=== PATIENT | female | born 1955 ===

== ENCOUNTER 2018-12-25 14:43 | Observation (INO) | payer MEDICARE ==
[2018-12-25 14:54] VITALS: BMI 22.8
[2018-12-25] MEDS ORDERED: Iodixanol 320 MG/ML 100 ML BOTTLE IV ONE (15:01)
[2018-12-25 15:03] LABS: BASO % 0.4 % (0.0-2.0); EOS # 0.1 K/uL (0.0-0.7); EOS % 0.7 % (0.0-4.0); HEMOGLOBIN 13.6 g/dL (11.0-16.0); LYMPH # 2.2 K/uL (1.0-4.3); LYMPH % 29.6 % (20.0-40.0); MEAN CELL VOLUME 86.7 fL (81.0-99.0); MEAN CORPUSCULAR HGB CONC 33.4 g/dL (33.0-37.0); MEAN PLATELET VOLUME 8.4 fL (7.2-11.7); MONO # 0.5 K/uL (0.0-0.8); MONO % 6.4 % (0.0-10.0); NEUT # 4.6 K/uL (1.8-7.0); NEUT % 62.9 % (50.0-75.0); RBC 4.7 Mil/uL (3.80-5.20); WHITE BLOOD COUNT 7.3 K/uL (4.8-10.8)
[2018-12-25 15:11] LABS: PROTHROMBIN TIME 11.1 SECONDS (9.7-12.2)
[2018-12-25 15:15] LABS: ALB/GLOB RATIO 1.4 (1.0-2.1); ALBUMIN 4.4 g/dL (3.5-5.0); ALT/SGPT 23 U/L (9-52); AST/SGOT 27 U/L (14-36); BLOOD UREA NITROGEN 6 mg/dL (7-17); CALCIUM 9.2 mg/dl (8.6-10.4); GFR NON-AFRICAN AMERICAN > 60; HDL CHOLESTEROL 40 mg/dL (30-70)
--- NOTE | 2018-12-25 15:21 | CT ---
Date of service: 12/25/2018 PROCEDURE: CT HEAD WITHOUT CONTRAST. HISTORY: Code Stroke COMPARISON: Not available TECHNIQUE: Axial computed tomography images were obtained through the head/brain without intravenous contrast. Radiation dose: Total exam DLP = 962.84 mGy-cm. This CT exam was performed using one or more of the following dose reduction techniques: Automated exposure control, adjustment of the mA and/or kV according to patient size, and/or use of iterative reconstruction technique. FINDINGS: HEMORRHAGE: No intracranial hemorrhage. BRAIN: No mass effect or edema. No significant atrophy. Minimal periventricular white matter lucency consistent with microvascular white matter ischemic change. VENTRICLES: Unremarkable. No hydrocephalus. CALVARIUM: Unremarkable. PARANASAL SINUSES: Unremarkable as visualized. No significant inflammatory changes. MASTOID AIR CELLS: Unremarkable as visualized. No inflammatory changes. OTHER FINDINGS: None. IMPRESSION: No evidence of acute infarct. No intracranial mass or hemorrhage. The findings in this examination were discussed by telephone with Dr. Benson at 3:18 p.m. on 12/25/2018.
[2018-12-25 15:27] LABS: LDL CHOLESTEROL 109 mg/dL (0-129)
--- NOTE | 2018-12-25 15:51 | RAD ---
Date of service: 12/25/2018 HISTORY: Code Stroke COMPARISON: No prior. FINDINGS: LUNGS: The lungs are well inflated and clear. PLEURA: No pleural effusions or pneumothorax. CARDIOVASCULAR: The heart is normal in size. No aortic atherosclerotic calcifications present. OSSEOUS STRUCTURES: Status post posterior spinal fixation in the lower thoracic spine. VISUALIZED UPPER ABDOMEN: Normal. OTHER FINDINGS: None. IMPRESSION: No active pulmonary disease.
--- NOTE | 2018-12-25 16:07 | C.PDOC ---
History Of Present Illness 63 y/o female presents to the ED complaining of not feeling well for the past 3 days. She describes having headache, confusion, and "generalized heaviness" to her body. Patient also complains of new left-sided facial numbness since this morning, unclear exactly what time, extending downward as "heaviness" into her left arm and left leg. Otherwise patient denies any fever, chills, neck pain, nausea, vomiting, visual changes, dizziness, palpitations, chest pain, or SOB. Patient is able to ambulate normally. Time Seen by Provider: 12/25/18 14:45 Chief Complaint (Nursing): Headache History Per: Patient History/Exam Limitations: no limitations Onset/Duration Of Symptoms: Days (3) Current Symptoms Are (Timing): Still Present Past Medical History Reviewed: Historical Data, Nursing Documentation, Vital Signs Vital Signs: Last Vital Signs Temp 97.6 F 12/25/18 14:45 Pulse 80 12/25/18 14:45 Resp 20 12/25/18 14:45 BP 154/84 H 12/25/18 14:45 Pulse Ox 100 12/25/18 14:45 - Medical History PMH: Asthma, Gastritis, HTN (denies as of 12/25/18), Hypercholesterolemia Surgical History: Back Surgery - [facility] INJECT/INFUSE NEC (04/04/14) Family History: States: Unknown Family Hx - Social History Hx Tobacco Use: Yes (Former smoker) Hx Alcohol Use: No Hx Substance Use: No Review Of Systems Except As Marked, All Systems Reviewed And Found Negative. Constitutional: Negative for: Fever, Chills Eyes: Negative for: Vision Change Cardiovascular: Negative for: Chest Pain Respiratory: Negative for: Shortness of Breath Gastrointestinal: Negative for: Nausea, Vomiting Musculoskeletal: Negative for: Neck Pain Neurological: Positive for: Numbness (left facial numbness), Confusion, Headache, Other ("heaviness" to left arm and left leg). Negative for: Weakness, Incoordination, Change in Speech, Dizziness Physical Exam - Physical Exam Appears: Non-toxic, No Acute Distress Skin: Warm, Dry, No Diaphoretic Head: Atraumatic, Normacephalic, Other (No facial droop) Eye(s): bilateral: Normal Inspection, PERRL, EOMI Nose: Normal Oral Mucosa: Moist Neck: Normal ROM, Supple Chest: Symmetrical, No Deformity Cardiovascular: Rhythm Regular, No Murmur Respiratory: Normal Breath Sounds, No Accessory Muscle Use, No Rhonchi, No Wheezing Gastrointestinal/Abdominal: Soft, No Tenderness, No Distention Extremity: Bilateral: Atraumatic, Normal Color And Temperature Pulses: Left Dorsalis Pedis: Normal, Right Dorsalis Pedis: Normal Neurological/Psych: Oriented x3, Normal Speech, Normal Cognition, No Normal Sensation (+ subjective sensation of numbness to left face), Other (Patient able to tandem walk, good [id number], no evidence of confusion) Extremity: Upper: No Drift, Lower: No Drift ED Course And Treatment - Laboratory Results Result Diagrams: 12/25/18 14:59 12/25/18 14:59 Lab Results: PT 11.1 SECONDS (9.7-12.2) 12/25/18 14:59 INR 1.0 12/25/18 14:59 APTT 35 SECONDS (21-34) H 12/25/18 14:59 Troponin I < 0.0120 ng/mL (0.00-0.120) 12/25/18 14:59 Total Bilirubin 0.6 mg/dL (0.2-1.3) 12/25/18 14:59 AST 27 U/L (14-36) 12/25/18 14:59 ALT 23 U/L (9-52) 12/25/18 14:59 Alkaline Phosphatase 65 U/L (38-126) 12/25/18 14:59 Total Protein 7.6 g/dL (6.3-8.3) 12/25/18 14:59 Albumin 4.4 g/dL (3.5-5.0) 12/25/18 14:59 Globulin 3.2 gm/dL (2.2-3.9) 12/25/18 14:59 Albumin/Globulin Ratio 1.4 (1.0-2.1) 12/25/18 14:59 ECG Rhythm: Sinus Rhythm ECG Interpretation: Normal Interpretation Of ECG: No ST elevations or depressions Rate From EC O2 Sat by Pulse Oximetry: 100 (RA) Pulse Ox Interpretation: Normal - Other Rad CXR X-Ray: Read By Radiologist Interpretation: Accession No. : [id number]. Patient Name / ID : XI Hedrick / [id number]. Exam Date : 12/25/2018 15:30:38 ( Approved ). Study Comment : Sex / Age : F / 63Y. Creator : Zainab Butler MD. Dictator : Zainab Butler MD. Order Puller : Ged Teacher : Zainab Butler MD. Approver2 : Report Date : 12/25/2018 15:47:45. My Comment : . Date of service: 12/25/2018. HISTORY: Code Stroke. COMPARISON: No prior. FINDINGS: LUNGS: The lungs are well inflated and clear. PLEURA: No pleural effusions or pneumothorax. CARDIOVASCULAR: The heart is normal in size. No aortic atherosclerotic calcifications present. OSSEOUS STRUCTURES: Status post posterior spinal fixation in the lower thoracic spine. VISUALIZED UPPER ABDOMEN: Normal. OTHER FINDINGS: None. IMPRESSION: No active pulmonary disease. - CT Scan/US Head CT Other Rad Studies (CT/US): Read By Radiologist, Radiology Report Reviewed CT/US Interpretation: Accession No. : [id number]. Patient Name / ID : XI Hedrick / [id number]. Exam Date : 12/25/2018 15:02:40 ( Approved ). Study Comment : Sex / Age : F / 63Y. Creator : Pastora Hua. Dictator : Luiz Chao MD. Order Puller : Ged Teacher : Luiz Chao MD. Approver2 : Report Date : 12/25/2018 15:05:03. My Comment : . Date of service: 12/25/2018. PROCEDURE: CT HEAD WITHOUT CONTRAST. HISTORY: Code Stroke. COMPARISON: Not available. TECHNIQUE: Axial computed tomography images were obtained through the head/brain without intravenous contrast. Radiation dose: Total exam DLP = 962.84 mGy-cm. This CT exam was performed using one or more of the following dose reduction techniques: Automated exposure control, adjustment of the mA and/or kV according to patient size, and/or use of iterative reconstruction technique. FINDINGS: HEMORRHAGE: No intracranial hemorrhage. BRAIN: No mass effect or edema. No significant atrophy. Minimal periventricular white matter lucency consistent with microvascular white matter ischemic change. VENTRICLES: Unremarkable. No hydrocephalus. CALVARIUM: Unremarkable. PARANASAL SINUSES: Unremarkable as visualized. No significant inflammatory changes. MASTOID AIR CELLS: Unremarkable as visualized. No inflammatory changes. OTHER FINDINGS: None. IMPRESSION: No evidence of acute infarct. No intracranial mass or hemo rrhage. The findings in this examination were discussed by telephone with Dr. Benson at 3:18 p.m. on 12/25/2018. NIHSS Stroke Scale - Date/Time Evaluation Performed Date Performed: 12/25/18 Time Performed: 14:50 When Was NIHSS Performed: Baseline - How Severe is the Stoke Level of Consciousness: 0=Alert LOC to Questions: 0=Both comments correct LOC to commands: 0=Obeys both correctly Best Gaze: 0=Normal Visual: 0=No visual loss Facial: 0=Normal Motor Arm - Left: 0=No drift Motor Arm - Right: 0=No drift Motor Leg - Left: 0=No drift Motor Leg - Right: 0=No drift Limb Ataxia: 0=Absent Sensory: 1=Mild to moderate loss Best Language: 0=No aphasia Dysarthia: 0=Normal articulation Extinction & Inattention (Neglect): 0=Normal, no object Score: 1 rTPA Inclusion/Exclusion - Refusal of Treatment Patient Refused Treatment: No - Inclusion Criteria for Altepase Patient is 18 years or Older: Yes The Clinical Diagnosis of Ischemic Stroke That is Causing a Potentially Disabling Neurological Deficit: Yes Time of Onset is Well Established to be Less Than 270 Minute Before Treatment Would Begin: No Risk/Benefit Discussed With Patient/Family Member Present: No - Exclusion Criteria for Altepase Uncontrolled Hypertension at Time of Treatment (Systolic BP above 185 or Diastolic BP above 110 mmHg): No Medical Decision Making Medical Decision Making: Patient seen and immediately evaluated in the ED. Code Stroke initiated. Initial Plan: - CT Head - CTA Head/Neck - Labs - EKG - Chest x-ray CT read as unremarkable. CTA delayed for reasons we could not help. 16:[address] Wilkins, who recommends giving aspirin, plavix, and lipitor. Discussed with Dr. Velazco, who agrees with the plan. Will admit. Disposition Discussed With Dr.: Dorian Wilkins Doctor Will See Patient In The: Hospital Counseled Patient/Family Regarding: Studies Performed, Diagnosis - Disposition Disposition: HOME/ ROUTINE Disposition Time: 16:30 Condition: GUARDED Forms: [facility] (Estonian) - POA Present On Arrival: None Core Measure Indicators: Code Stroke - Clinical Impression Clinical Impression: Headache, TIA (transient ischemic attack) - Scribe Statement The provider has reviewed the documentation as recorded by the Jefibevette Nichols Provider Attestation: All medical record entries made by the Jefibe were at my direction and personally dictated by me. I have reviewed the chart and agree that the record accurately reflects my personal performance of the history, physical exam, medical decision making, and the department course for this patient. I have also personally directed, reviewed, and agree with the discharge instructions and disposition. Decision To Admit - Pt Status Changed To: Hospital Disposition Of: Observation - . Bed Request Type: Telemetry Admitting Physician: Tito Velazco Patient Diagnosis: Headache, TIA (transient ischemic attack)
--- NOTE | 2018-12-25 17:03 | CT ---
Date of service: 12/25/2018 PROCEDURE: CTA HEAD AND NECK WITH CONTRAST HISTORY: code stroke COMPARISON: None available. TECHNIQUE: Initial noncontrast head CT was performed. Subsequently, CT angiogram of the head and neck were performed after the intravenous administration of 80 mL of Omnipaque 350. Contiguous 1.5mm thick images were obtained in the axial plane of the neck. 2-D coronal and sagittal MPR images were obtained. Imaging postprocessing was performed with 3-D images also obtained. A delayed contrast head CT was also obtained. This CT exam was performed using one or more of the following dose reduction techniques: Automated exposure control, adjustment of the mA and/or kV according to patient size, and/or use of iterative reconstruction technique. Contrast dose: 100 mL Visipaque 320 Radiation dose: Total exam DLP = 549.65 mGy-cm. FINDINGS: HEAD: Right: The intracranial internal carotid artery, and anterior and middle cerebral arteries are widely patent. Left: The intracranial internal carotid artery, and anterior and middle cerebral arteries are widely patent. Posterior circulation: The visualized intracranial vertebral arteries, basilar artery and posterior cerebral arteries are widely patent. There is no endoluminal filling defect to suggest thrombus. There is no intracranial saccular aneurysm. NECK: There is a three vessel aortic arch. There is no stenosis at the origins of the great vessels at the level of the aortic arch. No atherosclerotic calcification or mural plaque present. Right Carotid: On the right, the common carotid, internal carotid and external carotid arteries are widely patent. There is no hemodynamically significant stenosis in the internal carotid artery by NASCET criteria. Left Carotid: On the left, the common carotid, internal carotid and external carotid arteries are widely patent. There is no hemodynamically significant stenosis in the internal carotid artery by NASCET criteria. The vertebral arteries are widely patent. The left vertebral artery is hypoplastic, an anatomic variant. The visualized soft tissues of the neck are normal. The visualized brain and cervical spine are within normal limits. The lung apices are clear. IMPRESSION: 1. No evidence of endoluminal thrombus,occlusion or definite significant stenosis in the intracranial arteries. 2. No evidence of hemodynamically significant stenosis in the internal carotid arteries. 3. Patent bilateral vertebral arteries.
--- NOTE | 2018-12-25 18:21 | MRI ---
Date of service: 12/25/2018 PROCEDURE: MRI BRAIN WITHOUT CONTRAST HISTORY: r/o stroke COMPARISON: CT head without contrast performed earlier the same day. TECHNIQUE: Multiplanar, multisequence MR images of the brain were obtained without intravenous contrast enhancement. FINDINGS: HEMORRHAGE: None DWI: No evidence of an acute or early subacute infarction. BRAIN PARENCHYMA: There are mild chronic microangiopathic changes. There is no mass, mass effect or abnormal extra-axial fluid collection. There is no territorial infarction. The midline sagittal structures are normal. VENTRICLES: There is mild age-related global parenchymal volume loss and proportionate enlargement of the ventricles and cortical sulci. CRANIUM: There is normal bone marrow signal pattern. ORBITS: Grossly unremarkable. PARANASAL SINUSES/MASTOIDS: There is moderate polypoid mucosal thickening in the maxillary sinuses. The remaining included paranasal sinuses are clear. VASCULAR SYSTEM: There are normal signal voids in the larger intracranial arteries. OTHER FINDINGS: None. IMPRESSION: No acute intracranial abnormality. Mild age-related global parenchymal volume loss.
[2018-12-25 18:44] VITALS: RESP 20
--- NOTE | 2018-12-25 18:44 | MRI ---
Date of service: 12/25/2018 PROCEDURE: MR Angiography of the neck without contrast HISTORY: stroke COMPARISON: None available. TECHNIQUE: 3D [id number] angiography of the neck was performed. Rotating maximum intensity projection images of the cervical carotid and vertebral arteries were generated. The origins of the common carotid arteries were not visualized, which is a limitation inherent to the non-contrast time of flight technique. FINDINGS: RIGHT CAROTID ARTERIES: Common Carotid Artery: Normal. Carotid Bifurcation: Normal. Internal Carotid Artery:Normal. External Carotid Artery (proximal branches): Normal. LEFT CAROTID ARTERIES: Common Carotid Artery: Normal. Carotid Bifurcation: Normal. Internal Carotid Artery:Normal. External Carotid Artery (proximal branches): Normal. VERTEBRAL ARTERIES: Right Vertebral Artery: Normal. Left Vertebral Artery: Normal. Hypoplastic, an anatomic variant. OTHER FINDINGS: None. IMPRESSION: Normal MR Angiography of the neck.
--- NOTE | 2018-12-25 18:46 | MRI ---
Date of service: 12/25/2018 PROCEDURE: Magnetic Resonance Angiography Brain HISTORY: r/o stroke COMPARISON: None available. TECHNIQUE: 3D time of flight MR angiography of the intracranial arteries was performed. Rotating maximum intensity projection images were generated. FINDINGS: INTERNAL CAROTID ARTERIES: Normal flow related signal. The skull base, petrous, cavernous and supraclinoid segments are bilaterally widely patient. ANTERIOR CEREBRAL ARTERIES: Normal flow related signal. A1 and A2 segments are widely patent. Smaller distal branches unremarkable, as visualized. MIDDLE CEREBRAL ARTERIES: Normal flow related signal. M1 and M2 segments are widely patent. Perisylvian branches grossly symmetric. POSTERIOR CIRCULATION: Basilar Artery: Normal flow related signal. Normal in caliber and widely patent. Distal Vertebral Arteries: Normal flow related signal. The left vertebral artery is hypoplastic, an anatomic variant. Posterior Cerebral Arteries: Normal flow related signal. Widely patent. Posterior Inferior Cerebellar Arteries: Normal flow related signal. Widely patent. ANEURYSM/ VASCULAR MALFORMATIONS: None. OTHER FINDINGS: None. IMPRESSION: Normal noncontrast MR angiography of the brain.
[2018-12-25] MEDS ORDERED: Fluticasone Nasal 50 mcg/Spray NAS PRN (19:39)
[2018-12-25] MEDS: Enoxaparin 40 mg Syringe SC SCH (22:13)
[2018-12-25 22:58] LABS: CK-MB 0.68 ng/mL (0.0-3.38)
[2018-12-26 07:08] LABS: CK-MB 0.52 ng/mL (0.0-3.38)
--- NOTE | 2018-12-26 07:18 | CP.PCM.CON ---
<Vlaentino Gant - Last Filed: 12/26/18 15:14> Meds Allergies/Adverse Reactions: Allergies Allergy/AdvReac Type Severity Reaction Status Date / Time No Known Allergies Allergy Unverified 12/25/18 14:54 - Medications Medications: Current Medications Ascorbic Acid (Vitamin C 500 Mg Tab) 500 mg PO BID [facility] Last Admin: 12/26/18 09:46 Dose: Not Given Aspirin (Ecotrin) 81 mg PO DAILY [facility] Last Admin: 12/26/18 09:44 Dose: 81 mg Calcium/Vitamin D (Oyster Shell Calcium/Vitamin D 500 Mg-200 Iu) 2 tab PO DAILY [facility] Last Admin: 12/26/18 09:46 Dose: Not Given Enoxaparin Sodium (Lovenox) 40 mg SC DAILY [facility] Last Admin: 12/26/18 09:44 Dose: 40 mg Ergocalciferol (Drisdol 50,000 Intl Units Cap) 1 cap PO QWK [facility] Fluticasone Propionate (Flonase) 1 spr PATRICIA DAILY PRN PRN Reason: Allergy symptoms Pantoprazole Sodium (Protonix Ec Tab) 20 mg PO DAILY [facility] Last Admin: 12/26/18 09:43 Dose: 20 mg Zolpidem Tartrate (Ambien) 5 mg PO HS [facility] Last Admin: 12/25/18 22:13 Dose: 5 mg Results - Vital Signs Recent Vital Signs: Last Vital Signs Temp 98.1 F 12/26/18 08:23 Pulse 87 12/26/18 10:00 Resp 20 12/26/18 08:23 BP 117/71 12/26/18 08:23 Pulse Ox 98 12/26/18 08:23 - Labs Result Diagrams: 12/25/18 14:59 12/25/18 14:59 Labs: Laboratory Results - last 24 hr 12/25/18 12/25/18 12/25/18 14:59 14:59 15:58 Sodium 139 Potassium 3.7 Chloride 105 Carbon Dioxide 27 Anion Gap 10 BUN 6 L Creatinine 0.6 L Est GFR ( Amer) > 60 Est GFR (Non-Af Amer) > 60 POC Glucose (mg/dL) Random Glucose 93 Hemoglobin A1c 5.8 Calcium 9.2 Total Bilirubin 0.6 AST 27 ALT 23 Alkaline Phosphatase 65 Total Creatine Kinase CK-MB (Mass) Troponin I < 0.0120 Total Protein 7.6 Albumin 4.4 Globulin 3.2 Albumin/Globulin Ratio 1.4 Triglycerides 155 H Cholesterol 173 LDL Cholesterol Direct 109 HDL Cholesterol 40 Blood Type O POSITIVE Antibody Screen Negative 12/25/18 12/26/18 12/26/18 22:27 00:06 06:14 Sodium Potassium Chloride Carbon Dioxide Anion Gap BUN Creatinine Est GFR ( Amer) Est GFR (Non-Af Amer) POC Glucose (mg/dL) 78 90 Random Glucose Hemoglobin A1c Calcium Total Bilirubin AST ALT Alkaline Phosphatase Total Creatine Kinase 49 CK-MB (Mass) 0.68 Troponin I < 0.0120 Total Protein Albumin Globulin Albumin/Globulin Ratio Triglycerides Cholesterol LDL Cholesterol Direct HDL Cholesterol Blood Type Antibody Screen 12/26/18 12/26/18 06:40 11:15 Sodium Potassium Chloride Carbon Dioxide Anion Gap BUN Creatinine Est GFR ( Amer) Est GFR (Non-Af Amer) POC Glucose (mg/dL) 115 H Random Glucose Hemoglobin A1c Calcium Total Bilirubin AST ALT Alkaline Phosphatase Total Creatine Kinase 43 CK-MB (Mass) 0.52 Troponin I < 0.0120 Total Protein Albumin Globulin Albumin/Globulin Ratio Triglycerides Cholesterol LDL Cholesterol Direct HDL Cholesterol Blood Type Antibody Screen Attending/Attestation - Attestation I have personally seen and examined this patient.: Yes I have fully participated in the care of the patient.: Yes I have reviewed all pertinent clinical information: Yes Notes (Text): 12/26/18 15:14 63-year-old female consulted by Dr. Velazco for evaluation of symptoms of atypical chest pain patient was sick about 2 weeks ago with flulike symptoms was having some generalized malaise G6 days ago started feeling not herself described that she was somewhat delirious was in the kitchen cooking a tube in the next he did not remember any of that subsequently was having some vague dizziness lethargy also had some atypical chest pain described as radiation around the arm and the neck area nonspecific in nature only positive family history is significant for premature CAD in both her parents otherwise no other cardiovascular risk factors. Did have a history of hemangioma of the back for which she had surgical correction with pins and needles back at [facility] This patient underwent exercise treadmill stress test achieved good exercise tolerance with no echocardiographic changes suggestive of ischemia she achieved 100% of her maximal predicted heart rate with a rate pressure product of 20 7K achieved 9.6 metabolic equivalents on the Denny exercise protocol. Patient can be discharged home and f/u as outpt <Adam Riggs Jesús - Last Filed: 12/26/18 17:02> History of Present Illness - History of Present Illness History of Present Illness: dAam Riggs PGY1, Cardio consult note for Dr Gant Pt is a 63yo female former smoker with a PMH of "back surgery due to an angioma, HLD who presents to the emergency department complaining of generalized weakness/ pain. Pt states she has felt sick for the past 2 weeks and has had 1 week of confusion. Pt states she has experienced head pain which migrated to her chest, arm and jaw. She has had a cough and has felt weak for the past 2 weeks. She states she had high blood pressure in the 160's/90's while at home, she states her "blood pressure has been acting up". A 12 point ROS was obtained and added to the HPI where appropriate. Past Patient History - Past Medical History & Family History Past Medical History?: Yes - Past Social History Smoking Status: Former Smoker - CARDIAC Hx Hypercholesterolemia: Yes Hx Hypertension: Yes (denies as of 12/25/18) - PULMONARY Hx Asthma: Yes - MUSCULOSKELETAL/RHEUMATOLOGICAL Hx Falls: Yes - GASTROINTESTINAL Hx Gastritis: Yes - PSYCHIATRIC Hx Substance Use: No - SURGICAL HISTORY Hx Hysterectomy: Yes Other/Comment: BACK SX. - ANESTHESIA Hx Anesthesia: Yes Hx Anesthesia Reactions: No Meds - Medications Medications: Current Medications Ascorbic Acid (Vitamin C 500 Mg Tab) 500 mg PO BID [facility] Aspirin (Ecotrin) 81 mg PO DAILY [facility] Calcium/Vitamin D (Oyster Shell Calcium/Vitamin D 500 Mg-200 Iu) 2 tab PO DAILY [facility] Enoxaparin Sodium (Lovenox) 40 mg SC DAILY [facility] Last Admin: 12/25/18 22:13 Dose: 40 mg Ergocalciferol (Drisdol 50,000 Intl Units Cap) 1 cap PO QWK [facility] Fluticasone Propionate (Flonase) 1 spr PATRICIA DAILY PRN PRN Reason: Allergy symptoms Influenza Virus Vaccine (Flucelvax Quad [id number] Syr) 60 mcg IM .ONCE ONE Stop: 12/26/18 10:01 Pantoprazole Sodium (Protonix Ec Tab) 20 mg PO DAILY [facility] Pneumococcal Polyvalent Vaccine (Pneumovax 23 Vaccine) 0.5 ml IM .ONCE ONE Stop: 12/26/18 10:01 Zolpidem Tartrate (Ambien) 5 mg PO HS [facility] Last Admin: 12/25/18 22:13 Dose: 5 mg Physical Exam - Constitutional Appears: No Acute Distress - Head Exam Head Exam: ATRAUMATIC, NORMOCEPHALIC - Eye Exam Eye Exam: EOMI - ENT Exam ENT Exam: Mucous Membranes Moist - Neck Exam Neck exam: Positive for: Full Rom - Respiratory Exam Respiratory Exam: Clear to Auscultation Bilateral, NORMAL BREATHING PATTERN. absent: Accessory Muscle Use, Respiratory Distress - Cardiovascular Exam Cardiovascular Exam: RRR, +S1, +S2. absent: Diastolic murmur, Systolic Murmur - GI/Abdominal Exam GI & Abdominal Exam: Normal Bowel Sounds, Soft - Extremities Exam Extremities exam: Positive for: full ROM, pedal pulses present. Negative for: calf tenderness, pedal edema - Neurological Exam Neurological exam: Alert, Oriented x3 - Psychiatric Exam Psychiatric exam: Normal Affect, Normal Mood - Skin Skin Exam: Dry, Normal Color, Warm Results - Vital Signs Recent Vital Signs: Last Vital Signs Temp 98 F 12/26/18 04:00 Pulse 67 12/26/18 04:16 Resp 20 12/26/18 04:00 BP 112/71 12/26/18 04:00 Pulse Ox 97 12/26/18 04:00 - Labs Result Diagrams: 12/25/18 14:59 12/25/18 14:59 Labs: Laboratory Results - last 24 hr 12/25/18 12/25/18 12/25/18 14:52 14:59 14:59 WBC 7.3 RBC 4.70 Hgb 13.6 Hct 40.7 MCV 86.7 MCH 29.0 MCHC 33.4 RDW 14.0 Plt Count 311 MPV 8.4 Neut % (Auto) 62.9 Lymph % (Auto) 29.6 [place] % (Auto) 6.4 Eos % (Auto) 0.7 Baso % (Auto) 0.4 Neut # (Auto) 4.6 Lymph # (Auto) 2.2 [place] # (Auto) 0.5 Eos # (Auto) 0.1 Baso # (Auto) 0.0 PT 11.1 INR 1.0 APTT 35 H Sodium Potassium Chloride Carbon Dioxide Anion Gap BUN Creatinine Est GFR ( Amer) Est GFR (Non-Af Amer) POC Glucose (mg/dL) 85 Random Glucose Hemoglobin A1c Calcium Total Bilirubin AST ALT Alkaline Phosphatase Total Creatine Kinase CK-MB (Mass) Troponin I Total Protein Albumin Globulin Albumin/Globulin Ratio Triglycerides Cholesterol LDL Cholesterol Direct HDL Cholesterol Blood Type Antibody Screen 12/25/18 12/25/18 12/25/18 14:59 14:59 15:58 WBC RBC Hgb Hct MCV MCH MCHC RDW Plt Count MPV Neut % (Auto) Lymph % (Auto) [place] % (Auto) Eos % (Auto) Baso % (Auto) Neut # (Auto) Lymph # (Auto) [place] # (Auto) Eos # (Auto) Baso # (Auto) PT INR APTT Sodium 139 Potassium 3.7 Chloride 105 Carbon Dioxide 27 Anion Gap 10 BUN 6 L Creatinine 0.6 L Est GFR ( Amer) > 60 Est GFR (Non-Af Amer) > 60 POC Glucose (mg/dL) Random Glucose 93 Hemoglobin A1c 5.8 Calcium 9.2 Total Bilirubin 0.6 AST 27 ALT 23 Alkaline Phosphatase 65 Total Creatine Kinase CK-MB (Mass) Troponin I < 0.0120 Total Protein 7.6 Albumin 4.4 Globulin 3.2 Albumin/Globulin Ratio 1.4 Triglycerides 155 H Cholesterol 173 LDL Cholesterol Direct 109 HDL Cholesterol 40 Blood Type O POSITIVE Antibody Screen Negative 12/25/18 12/26/18 12/26/18 22:27 06:14 06:40 WBC RBC Hgb Hct MCV MCH MCHC RDW Plt Count MPV Neut % (Auto) Lymph % (Auto) [place] % (Auto) Eos % (Auto) Baso % (Auto) Neut # (Auto) Lymph # (Auto) [place] # (Auto) Eos # (Auto) Baso # (Auto) PT INR APTT Sodium Potassium Chloride Carbon Dioxide Anion Gap BUN Creatinine Est GFR ( Amer) Est GFR (Non-Af Amer) POC Glucose (mg/dL) 90 Random Glucose Hemoglobin A1c Calcium Total Bilirubin AST ALT Alkaline Phosphatase Total Creatine Kinase 49 43 CK-MB (Mass) 0.68 0.52 Troponin I < 0.0120 < 0.0120 Total Protein Albumin Globulin Albumin/Globulin Ratio Triglycerides Cholesterol LDL Cholesterol Direct HDL Cholesterol Blood Type Antibody Screen Assessment & Plan - Assessment and Plan (Free Text) Assessment: Angina, rule out ACS HLD code stroke Plan: Angina, rule out ACS HLD code stroke Trop negative x3 HA1C 5.[address] or T wave abnormalities Stress test 12/25/18: achieved 9.6 metabolic equivalents on the Denny exercise protocol. Pt can be discahrged home. follow up as an out pt Medications ASA Pt seen, examined, assessment and plan discussed with Dr Stalin Riggs PGY1 - Date & Time Date: 12/26/18 Time: 07:00
[2018-12-26 08:24] VITALS: O2SAT 98
[2018-12-26] MEDS: Calcium-Vit D 500 mg-200 Units Tab UD PO SCH ×2 (09:43→09:46)
[2018-12-26] MEDS: Enoxaparin 40 mg Syringe SC SCH (09:44)
[2018-12-26] MEDS ORDERED: Pantoprazole 20 mg EC Tab PO SCH (10:00)
[2018-12-26] MEDS ORDERED: Influenza Vaccine 60 mcg/0.5 mL SYR (4YR UP) IM ONE (10:00)
[2018-12-26] MEDS ORDERED: Pneumococcal 23-Valent Vaccine IM ONE (10:00)
--- NOTE | 2018-12-26 11:50 | CARD ---
APPROVED REPORT Date of service: 12/25/2018 EKG Measurement Heart [id number] <Conclusion> Normal sinus rhythm Normal ECG
--- NOTE | 2018-12-26 13:26 | CP.PCM.HP ---
History of Present Illness - History of Present Illness History of Present Illness: 63 y/o female presents to the ED complaining of not feeling well for the past 3 days. She describes having headache, confusion, and "generalized heaviness" to her body. Patient also complains of new left-sided facial numbness since this morning, unclear exactly what time, extending downward as "heaviness" into her left arm and left leg. Otherwise patient denies any fever, chills, neck pain, nausea, vomiting, visual changes, dizziness, palpitations, chest pain, or SOB. Patient is able to ambulate normally. She c/o same precordial CP not specific and not on exertion. A w/u for CVA was negative the cardiac w/u still in progress. Present on Admission - Present on Admission Any Indicators Present on Admission: No Review of Systems - Constitutional Constitutional: As Per HPI - EENT Eyes: As Per HPI - Cardiovascular Cardiovascular: Chest Pain - Musculoskeletal Musculoskeletal: Arthralgias - Neurological Neurological: Numbness, Headaches - Psychiatric Psychiatric: Anxiety - Endocrine Endocrine: As Per HPI Past Patient History - Past Medical History & Family History Past Medical History?: Yes - Past Social History Smoking Status: Former Smoker - CARDIAC Hx Hypercholesterolemia: Yes Hx Hypertension: Yes (denies as of 12/25/18) - PULMONARY Hx Asthma: Yes - MUSCULOSKELETAL/RHEUMATOLOGICAL Hx Falls: Yes - GASTROINTESTINAL Hx Gastritis: Yes - PSYCHIATRIC Hx Substance Use: No - SURGICAL HISTORY Hx Hysterectomy: Yes Other/Comment: BACK SX. - ANESTHESIA Hx Anesthesia: Yes Hx Anesthesia Reactions: No Meds Allergies/Adverse Reactions: Allergies Allergy/AdvReac Type Severity Reaction Status Date / Time No Known Allergies Allergy Unverified 12/25/18 14:54 Physical Exam - Constitutional Appears: Non-toxic - Head Exam Head Exam: ATRAUMATIC, NORMAL INSPECTION, NORMOCEPHALIC - Eye Exam Eye Exam: Normal appearance - ENT Exam ENT Exam: Mucous Membranes Moist - Respiratory Exam Respiratory Exam: Clear to Auscultation Bilateral - Cardiovascular Exam Cardiovascular Exam: REGULAR RHYTHM, +S1, +S2 - GI/Abdominal Exam GI & Abdominal Exam: Normal Bowel Sounds - Extremities Exam Extremities exam: Positive for: normal inspection - Neurological Exam Neurological exam: Alert, CN II-XII Intact, Normal Gait, Oriented x3, Reflexes Normal - Psychiatric Exam Psychiatric exam: Normal Affect - Skin Skin Exam: Normal Color Results - Vital Signs Recent Vital Signs: Last Vital Signs Temp 98.1 F 12/26/18 08:23 Pulse 83 12/26/18 08:23 Resp 20 12/26/18 08:23 BP 117/71 12/26/18 08:23 Pulse Ox 98 12/26/18 08:23 - Labs Result Diagrams: 12/25/18 14:59 12/25/18 14:59 Labs: Laboratory Results - last 24 hr 12/25/18 12/25/18 12/25/18 14:52 14:59 14:59 WBC 7.3 RBC 4.70 Hgb 13.6 Hct 40.7 MCV 86.7 MCH 29.0 MCHC 33.4 RDW 14.0 Plt Count 311 MPV 8.4 Neut % (Auto) 62.9 Lymph % (Auto) 29.6 [place] % (Auto) 6.4 Eos % (Auto) 0.7 Baso % (Auto) 0.4 Neut # (Auto) 4.6 Lymph # (Auto) 2.2 [place] # (Auto) 0.5 Eos # (Auto) 0.1 Baso # (Auto) 0.0 PT 11.1 INR 1.0 APTT 35 H Sodium Potassium Chloride Carbon Dioxide Anion Gap BUN Creatinine Est GFR ( Amer) Est GFR (Non-Af Amer) POC Glucose (mg/dL) 85 Random Glucose Hemoglobin A1c Calcium Total Bilirubin AST ALT Alkaline Phosphatase Total Creatine Kinase CK-MB (Mass) Troponin I Total Protein Albumin Globulin Albumin/Globulin Ratio Triglycerides Cholesterol LDL Cholesterol Direct HDL Cholesterol Blood Type Antibody Screen 12/25/18 12/25/18 12/25/18 14:59 14:59 15:58 WBC RBC Hgb Hct MCV MCH MCHC RDW Plt Count MPV Neut % (Auto) Lymph % (Auto) [place] % (Auto) Eos % (Auto) Baso % (Auto) Neut # (Auto) Lymph # (Auto) [place] # (Auto) Eos # (Auto) Baso # (Auto) PT INR APTT Sodium 139 Potassium 3.7 Chloride 105 Carbon Dioxide 27 Anion Gap 10 BUN 6 L Creatinine 0.6 L Est GFR ( Amer) > 60 Est GFR (Non-Af Amer) > 60 POC Glucose (mg/dL) Random Glucose 93 Hemoglobin A1c 5.8 Calcium 9.2 Total Bilirubin 0.6 AST 27 ALT 23 Alkaline Phosphatase 65 Total Creatine Kinase CK-MB (Mass) Troponin I < 0.0120 Total Protein 7.6 Albumin 4.4 Globulin 3.2 Albumin/Globulin Ratio 1.4 Triglycerides 155 H Cholesterol 173 LDL Cholesterol Direct 109 HDL Cholesterol 40 Blood Type O POSITIVE Antibody Screen Negative 12/25/18 12/26/18 12/26/18 22:27 00:06 06:14 WBC RBC Hgb Hct MCV MCH MCHC RDW Plt Count MPV Neut % (Auto) Lymph % (Auto) [place] % (Auto) Eos % (Auto) Baso % (Auto) Neut # (Auto) Lymph # (Auto) [place] # (Auto) Eos # (Auto) Baso # (Auto) PT INR APTT Sodium Potassium Chloride Carbon Dioxide Anion Gap BUN Creatinine Est GFR ( Amer) Est GFR (Non-Af Amer) POC Glucose (mg/dL) 78 90 Random Glucose Hemoglobin A1c Calcium Total Bilirubin AST ALT Alkaline Phosphatase Total Creatine Kinase 49 CK-MB (Mass) 0.68 Troponin I < 0.0120 Total Protein Albumin Globulin Albumin/Globulin Ratio Triglycerides Cholesterol LDL Cholesterol Direct HDL Cholesterol Blood Type Antibody Screen 12/26/18 12/26/18 06:40 11:15 WBC RBC Hgb Hct MCV MCH MCHC RDW Plt Count MPV Neut % (Auto) Lymph % (Auto) [place] % (Auto) Eos % (Auto) Baso % (Auto) Neut # (Auto) Lymph # (Auto) [place] # (Auto) Eos # (Auto) Baso # (Auto) PT INR APTT Sodium Potassium Chloride Carbon Dioxide Anion Gap BUN Creatinine Est GFR ( Amer) Est GFR (Non-Af Amer) POC Glucose (mg/dL) 115 H Random Glucose Hemoglobin A1c Calcium Total Bilirubin AST ALT Alkaline Phosphatase Total Creatine Kinase 43 CK-MB (Mass) 0.52 Troponin I < 0.0120 Total Protein Albumin Globulin Albumin/Globulin Ratio Triglycerides Cholesterol LDL Cholesterol Direct HDL Cholesterol Blood Type Antibody Screen Assessment & Plan (1) Headache Status: Acute (2) TIA (transient ischemic attack) Status: Acute (3) Chest pain Status: Acute - Assessment and Plan (Free Text) Plan: CVA w/u negative . If Cardio w/u is negative will dc home
--- NOTE | 2018-12-26 16:29 | CP.PCM.CON ---
History of Present Illness - History of Present Illness History of Present Illness: Neurology Consultation Note: Consult requested by Dr. Velazco Mrs. Adams is a 63-year-old woman with a history of arthritis who presented to the ED complaining of a 3 day history of generalized weakness and feeling that her left side was becoming more numb. MRI of the brain and MRA of the head/neck were all normal. The patient states she has been feeling sick for the last week and at times has had confusion. Review of Systems - Review of Systems All systems: reviewed and no additional remarkable complaints except Past Patient History - Past Medical History & Family History Past Medical History?: Yes - Past Social History Smoking Status: Former Smoker - CARDIAC Hx Hypercholesterolemia: Yes Hx Hypertension: Yes (denies as of 12/25/18) - PULMONARY Hx Asthma: Yes - MUSCULOSKELETAL/RHEUMATOLOGICAL Hx Falls: Yes - GASTROINTESTINAL Hx Gastritis: Yes - PSYCHIATRIC Hx Substance Use: No - SURGICAL HISTORY Hx Hysterectomy: Yes Other/Comment: BACK SX. - ANESTHESIA Hx Anesthesia: Yes Hx Anesthesia Reactions: No Meds Home Medications: Home Medication List Medication Instructions Recorded Confirmed Type Aspirin [Aspirin Chewable] 324 mg PO STAT chew 12/26/18 Rx Clopidogrel [Plavix] 300 mg PO STAT tab 12/26/18 Rx Allergies/Adverse Reactions: Allergies Allergy/AdvReac Type Severity Reaction Status Date / Time No Known Allergies Allergy Unverified 12/25/18 14:54 - Medications Medications: Current Medications Ascorbic Acid (Vitamin C 500 Mg Tab) 500 mg PO BID [facility] Last Admin: 12/26/18 09:46 Dose: Not Given Aspirin (Ecotrin) 81 mg PO DAILY [facility] Last Admin: 12/26/18 09:44 Dose: 81 mg Calcium/Vitamin D (Oyster Shell Calcium/Vitamin D 500 Mg-200 Iu) 2 tab PO DAILY [facility] Last Admin: 12/26/18 09:46 Dose: Not Given Enoxaparin Sodium (Lovenox) 40 mg SC DAILY [facility] Last Admin: 12/26/18 09:44 Dose: 40 mg Ergocalciferol (Drisdol 50,000 Intl Units Cap) 1 cap PO QWK [facility] Fluticasone Propionate (Flonase) 1 spr PATRICIA DAILY PRN PRN Reason: Allergy symptoms Pantoprazole Sodium (Protonix Ec Tab) 20 mg PO DAILY [facility] Last Admin: 12/26/18 09:43 Dose: 20 mg Zolpidem Tartrate (Ambien) 5 mg PO HS [facility] Last Admin: 12/25/18 22:13 Dose: 5 mg Physical Exam - Constitutional Appears: Well - Head Exam Head Exam: ATRAUMATIC, NORMAL INSPECTION, NORMOCEPHALIC - Eye Exam Eye Exam: EOMI, Normal appearance, PERRL Pupil Exam: NORMAL ACCOMODATION, PERRL - ENT Exam ENT Exam: Mucous Membranes Moist, Normal Exam - Neck Exam Neck exam: Positive for: Normal Inspection - Respiratory Exam Respiratory Exam: Clear to Auscultation Bilateral, NORMAL BREATHING PATTERN - Cardiovascular Exam Cardiovascular Exam: REGULAR RHYTHM - GI/Abdominal Exam GI & Abdominal Exam: Normal Bowel Sounds, Soft. absent: Tenderness - Extremities Exam Extremities exam: Positive for: normal inspection - Back Exam Back exam: NORMAL INSPECTION - Neurological Exam Neurological exam: Alert, CN II-XII Intact, Normal Gait, Oriented x3, Reflexes Normal - Psychiatric Exam Psychiatric exam: Normal Affect, Normal Mood - Skin Skin Exam: Dry, Intact, Normal Color, Warm Results - Vital Signs Recent Vital Signs: Last Vital Signs Temp 98.1 F 12/26/18 08:23 Pulse 87 12/26/18 10:00 Resp 20 12/26/18 08:23 BP 117/71 12/26/18 08:23 Pulse Ox 98 12/26/18 08:23 - Labs Result Diagrams: 12/25/18 14:59 12/25/18 14:59 Labs: Laboratory Results - last 24 hr 12/25/18 12/25/18 12/26/18 15:58 22:27 00:06 POC Glucose (mg/dL) 78 Total Creatine Kinase 49 CK-MB (Mass) 0.68 Troponin I < 0.0120 Blood Type O POSITIVE Antibody Screen Negative 12/26/18 12/26/18 12/26/18 06:14 06:40 11:15 POC Glucose (mg/dL) 90 115 H Total Creatine Kinase 43 CK-MB (Mass) 0.52 Troponin I < 0.0120 Blood Type Antibody Screen Assessment & Plan (1) Confusion Assessment and Plan: Currently, the patient is normal and does not have any symptoms. All imaging was also normal. I recommend obtaining an MRI as an outpatient to rule out complex partial seizures. Status: Acute (2) TIA (transient ischemic attack) Assessment and Plan: Work-up has been negative. I recommend continuing aspirin 81 mg daily for stroke prevention. Follow up with neurology as an outpatient. Thank you for this consultation. Status: Acute
[2018-12-26 17:32] VITALS: BP 121/68; PULSE 84; TEMP 98.6
[2018-12-27] MEDS ORDERED: Ergocalciferol 50,000 Intl Units Cap PO SCH (10:00)
--- NOTE | 2018-12-27 14:24 | CARD ---
APPROVED REPORT Date of service: 12/26/2018 EXAM: Two-dimensional and M-mode echocardiogram with Doppler and color Doppler. Other Information Quality : GoodRhythm : RISK FACTORS Hypertension Hyperlipidemia 2D DIMENSIONS IVSd1.0 (0.7-1.1cm)Aortic Root (2D)3.1 (2.0-3.7cm) LVDd3.3 (3.9-5.9cm)PWd0.8 (0.7-1.1cm) LA Ufdjxy53 (18-58mL)LVDs2.2 (2.5-4.0cm) FS (%) 34.8 %LVEF (%)65.2 (>50%) LVEF (Tellez's)59.83 %IVC0.00 cm M-Mode DIMENSIONS RVDd0.93 (2.1-3.2cm)Left Atrium (MM)2.68 (2.5-4.0cm) IVSd0.90 (0.7-1.1cm)Aortic Root3.31 (2.2-3.7cm) LVDd4.09 (4.0-5.6cm)Aortic Cusp Exc.2.13 (1.5-2.0cm) PWd0.87 (0.7-1.1cm)FS (%) 41 % LVDs2.40 (2.0-3.8cm)LVEF (%)60 (>50%) Mitral Valve MV E Kpvxrdpb48.2cm/sMV A Renyvebt37.8cm/sE/A ratio1.2 QYLG590.69 cm/s TDI Lateral E' Peak V11.77cm/sMedial E' Peak V8.48cm/sE/Lateral E'6.1 E/Medial E'8.5 Tricuspid Valve TR Peak Jjfwhvdu208za/sTR Peak Gr.[id number] <Conclusion> normal size la,lv & ra rv. normal lv wall motion,thickness,systolic & diastolic funciton with l vef of 60-65%. normal aortic,mitral,tv & pv. mild tr,pi with normal pulmonary systolic pressures of 25 mm of hg. normal size aortic root. no pericardial effusion.
--- NOTE | 2018-12-27 23:00 | CARD ---
APPROVED REPORT Date of service: 12/26/2018 Protocol: SHIN Test Type: TREADMILLTEST Attending Physician: Dr. BRAVO Technologist: ROSA Test Indications: CP Medical History: CP Target HR: 158 bpm Resting ECG: normal Resting Heart Rate: 100 bpm Resting Blood Pressure: 138/80mmHg submaximum (85%): 134 bpm TEST SUMMARY PRETESTWARM-UP12:[id number]. EXERCISESTAGE 103:[id number]/80.0. EXERCISESTAGE 203:[id number]/80.0. EXERCISESTAGE 300:[id number]/80.0. [id number]/50.0. POST EXERCISE Reason for Termination: Fatigue Target HR: YesMax HR: 176 [id number]% of Maximum Predicted HR: 158 bpm Exercise duration: 3 Stage06:53 min:secExercise capacity: 9.7METs Max Blood Pressure: 180/50mmHg Blood Pressure response to exercise: normal resting BP - appropriate response Heart Rate response to exercise: appropriate Chest Pain: NononeAngina index: 0 Arrhythmia: Nonone ST Change: NononeDeviation: 0 mm INTERPRETATION Stress EKG Conclusion: - Normal exercise treadmill stress test with no evidence of ischemia - Good exercise tolerance
== END 2018-12-26 19:27 | disposition home or self-care (01) ==
LOC: C.ER 14:43 → C.9E 16:32 → C.6T 17:10
PROVIDERS: ADMIT Internal Medicine; ATTEND Internal Medicine
DX: G45.9 Transient cerebral ischemic attack, unspecified (principal); E78.00 Pure hypercholesterolemia, unspecified; I10 Essential (primary) hypertension; I20.9 Angina pectoris, unspecified; E78.5 Hyperlipidemia, unspecified; Z87.891 Personal history of nicotine dependence; J45.909 Unspecified asthma, uncomplicated
CPT/HCPCS: 36415; 70450; 70496; 70498; 70544; 70547; 70551; 71045; 80053; 80061; 82948; 83036; 84484; 85025; 85610; 85730; 86850; 86900; 93005; 93306; 97116; 97161; 99285; G0378; G8978; G8979; J1650; Q9967